=== PATIENT | male | born 1975 | race Caucasian/White ===

== ENCOUNTER 2022-06-15 09:33 | Day surgery (SDC) | payer OTHER ==
[~2022-06-15] VITALS: Ht 177.8 cm; Wt 111.1 kg
[2022-06-15] MEDS ORDERED: AVAPRO75 MG (10:41)
[2022-06-15] MEDS ORDERED: IRBESARTAN-HCT1 EAC2 (10:41)
== END 2022-06-15 14:00 | disposition home or self-care (01) ==
LOC: ORSCSDS 09:33
PROVIDERS: Internal Medicine Gastroenterology
PROC: 0DBH8ZX Excision of Cecum, Via Natural or Artificial Opening Endoscopic, Diagnostic (ICD-10-PCS; principal; 2022-06-15 10:45)
DX: Z12.11 Encounter for screening for malignant neoplasm of colon (principal); Z83.71 Family history of colonic polyps; D12.0 Benign neoplasm of cecum; K64.8 Other hemorrhoids; Z79.899 Other long term (current) drug therapy
CPT/HCPCS: 88305; J2704; J7120

== ENCOUNTER 2023-05-02 08:02 | Day surgery (SDC) | payer OTHER ==
[~2023-05-02] VITALS: Ht 177.8 cm; Wt 115.5 kg
[2023-05-02] VITALS (8 sets, daily range): BP systolic 78–123; BP diastolic 42–85
[~2023-05-02 08:02] MED LIST: ASPI81CH PO; AVAPRO75 MG; IRBESARTAN-HCT1 EAC2; METO50ER PO; MULVITA PO
--- NOTE | 2023-05-02 10:32 | NUR ---
History, Chart, Medications and Allergies reviewed before start of procedure. Lungs clear T/O to Auscultation. Patient confirms NPO status and agrees with scheduled surgery. Pre-Op teaching done. Pt verbalizes understanding. Patient reports completing Chlorhexadine shower X2 prior to admission to hospital.
--- NOTE | 2023-05-02 12:18 | NUR ---
Discharge instructions reviewed with patient. Patient verbalizes understanding. Copy given to patient to take home. Prescription given to emt driver. Patient States Post-Procedure ride home has been arranged. Discharged via wheelchair to private car for ride home.
== END 2023-05-02 12:26 | disposition home or self-care (01) ==
LOC: ORSCMMR 08:02 → ORD 09:15 → ORSCMMR 09:15
PROVIDERS: Surgery
PROC: 0WUF4JZ Supplement Abdominal Wall with Synthetic Substitute, Percutaneous Endoscopic Approach (ICD-10-PCS; principal; 2023-05-02 09:15)
DX: K42.0 Umbilical hernia with obstruction, without gangrene (principal); I10 Essential (primary) hypertension; K21.9 Gastro-esophageal reflux disease without esophagitis; Z68.36 Body mass index [BMI] 36.0-36.9, adult; Z79.899 Other long term (current) drug therapy; Z79.82 Long term (current) use of aspirin
CPT/HCPCS: A9270; C1781; J0690; J2250; J2371; J2704; J3010; J7120

== ENCOUNTER → 2023-09-03 | Outpatient (CLI) | payer OTHER | END | disposition home or self-care (01) | LOC: LAB SHORT 10:36 → LAB 10:36 | DX: R53.83 Other fatigue (principal) | CPT/HCPCS: 84403; 84443 ==